=== PATIENT | male | born 1995 | race Caucasian/White ===

== ENCOUNTER 2018-11-23 17:40 | Emergency (ER) | payer SELFPAY ==
[2018-11-23 18:04] VITALS: BMI 19.5
[2018-11-23 18:06] VITALS: RESP 18; TEMP 98.2
[2018-11-23] MEDS ORDERED: Sodium Chloride 0.9% 1,000 ML IV ONE (19:13)
[2018-11-23 20:17] LABS: BASO % 0.7 % (0.0-2.0); EOS # 0.2 K/uL (0.0-0.7); EOS % 3.7 % (0.0-4.0); LYMPH # 1.6 K/uL (1.0-4.3); LYMPH % 26.2 % (20.0-40.0); MEAN CELL VOLUME 92.5 fL (80.0-94.0); MEAN CORPUSCULAR HEMOGLOBIN 31.2 pg (27.0-31.0); MEAN CORPUSCULAR HGB CONC 33.7 g/dL (33.0-37.0); MEAN PLATELET VOLUME 8.2 fL (7.2-11.7); MONO # 0.4 K/uL (0.0-0.8); NEUT # 3.9 K/uL (1.8-7.0); NEUT % 63.4 % (50.0-75.0); RBC 4.83 Mil/uL (4.40-5.90); RED CELL DISTRIBUTION WIDTH 13.9 % (11.5-14.5); WHITE BLOOD COUNT 6.1 K/uL (4.8-10.8)
[2018-11-23 20:24] LABS: ALB/GLOB RATIO 1.6 (1.0-2.1); ALBUMIN 4.7 g/dL (3.5-5.0); ALT/SGPT < 6 U/L (21-72); AST/SGOT 25 U/L (17-59); BLOOD UREA NITROGEN 16 mg/dL (9-20); CALCIUM 9.6 mg/dl (8.6-10.4); GFR NON-AFRICAN AMERICAN > 60
[2018-11-23 20:40] LABS: LIPASE 180 U/L (23-300)
[2018-11-23 20:46] LABS: URINE BILIRUBIN NEGATIVE (NEGATIVE); URINE BLOOD NEGATIVE (NEGATIVE); URINE CALCIUM OXALATE CRYSTALS RARE /hpf (<OCC); URINE CLARITY Clear (Clear); URINE COLOR Yellow (YELLOW); URINE GLUCOSE (UA) NORMAL (Normal); URINE LEUKOCYTE ESTERASE NEG Leu/uL (Negative); URINE PROTEIN NEGATIVE (NEGATIVE); URINE UROBILINOGEN NORMAL mg/dL (0.2-1.0)
--- NOTE | 2018-11-23 21:20 | C.PDOC ---
History Of Present Illness 22 year old male with LLQ abdominal pain intermittently, consistent with prior renal colic. Patient diagnosed with renal solic a few years ago. He reports some blood in his urine today. Time Seen by Provider: 11/23/18 18:42 Chief Complaint (Nursing): Male Genitourinary History Per: Patient History/Exam Limitations: no limitations Onset/Duration Of Symptoms: Days Current Symptoms Are (Timing): Still Present Location Of Pain/Discomfort: LLQ Radiation Of Pain To:: None Quality Of Discomfort: Unable To Describe Associated Symptoms: Other (Bloody urine) Exacerbating Factors: None Alleviating Factors: None Recent travel outside of the [place]: No Past Medical History Reviewed: Historical Data, Nursing Documentation, Vital Signs Vital Signs: Last Vital Signs Temp 98.2 F 11/23/18 18:04 Pulse 80 11/23/18 18:04 Resp 18 11/23/18 18:04 BP 169/89 H 11/23/18 18:04 Pulse Ox 98 11/23/18 18:04 - Medical History PMH: Kidney Stones Family History: States: Unknown Family Hx - Social History Hx Tobacco Use: No Hx Alcohol Use: No Hx Substance Use: No - Immunization History Hx Influenza Vaccination: No Review Of Systems Constitutional: Negative for: Fever, Chills Cardiovascular: Negative for: Chest Pain, Palpitations Respiratory: Negative for: Cough, Shortness of Breath Gastrointestinal: Positive for: Abdominal Pain. Negative for: Nausea, Vomiting Genitourinary: Positive for: Hematuria Neurological: Negative for: Weakness, Numbness Physical Exam - Physical Exam Appears: Non-toxic, No Acute Distress Skin: Normal Color, Warm, Dry Head: Atraumatic, Normacephalic Eye(s): bilateral: Normal Inspection Oral Mucosa: Moist Neck: Normal, Supple Chest: Symmetrical, No Tenderness Cardiovascular: Rhythm Regular Respiratory: Normal Breath Sounds, No Rales, No Rhonchi, No Wheezing Gastrointestinal/Abdominal: Soft, No Tenderness Back: No CVA Tenderness Neurological/Psych: Oriented x3, Normal Speech ED Course And Treatment - Laboratory Results Result Diagrams: 11/23/18 20:01 11/23/18 20:01 Lab Interpretation: Normal (ua neg.) O2 Sat by Pulse Oximetry: 98 Pulse Ox Interpretation: Normal Reevaluation Time: 21:43 Reassessment Condition: Improved (remains asymptomatic) Medical Decision Making Medical Decision Making: NO renal colic chronic constipation diet and laxatives educated Disposition Doctor Will See Patient In The: Office Counseled Patient/Family Regarding: Studies Performed, Diagnosis - Disposition Referrals: [facility] [Outside] [employer] [facility] [Outside] [facility] [Outside] [facility] [Outside] Boni Callahan MD [Staff Provider] - Disposition: HOME/ ROUTINE Disposition Time: 21:43 Condition: GOOD Additional Instructions: urinalysis and CT of Abd/pelvis show NO ureteral stones moderate stool may be provoking abdominal colic consider gentle laxatives and diet/exercise changes Drink MUCH more water. outpatient follow-up with our Family Practice [facility] or Urology as needed Instructions: Constipation in Adults, Gas and Bloating (ED) Forms: [employer] (Cro[place]ian), School Excuse - Clinical Impression Clinical Impression: Abdominal colic - Scribe Statement The provider has reviewed the documentation as recorded by the Scribmaynor Negron All medical record entries made by the Scribe were at my direction and personally dictated by me. I have reviewed the chart and agree that the record accurately reflects my personal performance of the history, physical exam, medical decision making, and the department course for this patient. I have also personally directed, reviewed, and agree with the discharge instructions and disposition.
[2018-11-23 22:04] VITALS: BP 138/78; PULSE 80
[2018-11-23 22:19] VITALS: O2SAT 98
--- NOTE | 2018-11-24 09:52 | CT ---
Date of service: 11/23/2018 PROCEDURE: CT abdomen pelvis HISTORY: Left lower abdominal pain; C/W prior renal colic COMPARISON: No prior study available comparison. TECHNIQUE: Contiguous axial images of the abdomen and pelvis performed without oral or intravenous contrast. Additional 2D sagittal and coronal reformats generated. Radiation dose: Total exam DLP = 245.01 mGy-cm. This CT exam was performed using one or more of the following dose reduction techniques: Automated exposure control, adjustment of the mA and/or kV according to patient size, and/or use of iterative reconstruction technique. FINDINGS: LOWER THORAX: Lung bases clear. No infiltrate effusion or basilar pneumothorax. Heart size within range of normal. No significant pericardial effusion. LIVER: Unremarkable. No gross lesion or ductal dilatation. GALLBLADDER AND BILE DUCTS: Unremarkable. PANCREAS: Unremarkable. No mass. No ductal dilatation. SPLEEN: Unremarkable. No splenomegaly. ADRENALS: Unremarkable. KIDNEYS AND URETERS: There are multiple small nonobstructing bilateral renal calculi. The largest calculus seen in the mid to lower pole right kidney measures approximately 3.35 mm. The largest calculus seen in the midpole collecting system left kidney measures approximately 2.8 mm. There is slight columnization of the left ureter. Bladder Urinary bladder is incompletely distended which in part accounts for slight thick-walled appearance however correlation with urinalysis recommended to exclude cystitis.. Muscular hypertrophy may contribute. No evidence of intraluminal urinary bladder calculi. REPRODUCTIVE: Mildly enlarged prostate gland measuring approximately 4.1 cm in transverse dimension. APPENDIX: Normal appendix. BOWEL: The stomach is partially distended with food debris liquid and air. Visualized loops of small bowel exhibit normal contour and caliber. No evidence of acute mechanical small bowel obstruction. There are scattered colonic diverticula the bulk which arise from the distal descending and proximal sigmoid colon however no radiographic evidence of acute diverticulitis. PERITONEUM: Unremarkable. No fluid collection. No free air. LYMPH NODES: Unremarkable. No enlarged lymph nodes. VASCULATURE: Unremarkable. No aortic aneurysm. No aortic atherosclerotic calcification or mural plaque present. BONES: There are multilevel chronic appearing Schmorl's nodes seen in the lower thoracic and lumbar region. No acute compression fractures no retropulsed fragments. Vertebral bodies normal stature. Vertebral bodies and facets normally aligned. OTHER FINDINGS: None. IMPRESSION: There are multiple small bilateral renal calculi the largest on the right measuring approximately 3.35 mm and on the left measuring approximately 2.8 mm.. Slight columnization of the left ureter. Mild wall thickening of the urinary bladder in part due to incomplete distention however muscular hypertrophy presumably contributes. Correlation with urinalysis recommended to exclude cystitis. Diverticulosis without radiographic evidence of diverticulitis
== END 2018-11-23 21:45 | disposition home or self-care (01) ==
LOC: C.ER 17:40
DX: R10.84 Generalized abdominal pain (principal)
CPT/HCPCS: 74176; 80053; 81001; 83690; 85025; 96374; 99285; J1885; J7030